=== PATIENT | female | born 1940 | race Caucasian/White ===

== ENCOUNTER 2017-03-15 12:34 | Emergency (ER) | payer MEDICARE ==
[~2017-03-15] VITALS: Ht 170.2 cm; Wt 63.5 kg
[~2017-03-15 12:34] MED LIST: ALBUTEROL S5 MG/1 ML INH; ALBUTEROL2.5 MG/3 M INH; ATROVENT HFA12.9 GM; CROMOLYN S20 MG/2 ML INH; HYDROCODON-ACE1 EA14 PO; NORCO 5-325 TA1 EACH PO; SINGULAIR10 MG PO; THEOCHRON300 MG PO; THEOPHYLLINE A300 MG PO; [UNRECOGNIZED DRUG - REMARK]
[2017-03-15] MEDS ORDERED: THEO-24300 MG PO (14:36)
== END 2017-03-15 14:51 | disposition home or self-care (01) ==
LOC: ED 12:34
DX: J45.901 Unspecified asthma with (acute) exacerbation (principal)
CPT/HCPCS: 94640; 99283

== ENCOUNTER 2019-07-02 10:59 | Emergency (ER) | payer MEDICARE ==
[~2019-07-02] VITALS: Ht 170.2 cm; Wt 63.6 kg
[~2019-07-02 10:59] MED LIST changes: +THEO-24300 MG PO
[2019-07-02] MEDS ORDERED: LEVOTHYROXINE100 MCG PO (11:07)
== END 2019-07-02 13:30 | disposition home or self-care (01) ==
LOC: ED 10:59
DX: R56.9 Unspecified convulsions (principal); J44.9 Chronic obstructive pulmonary disease, unspecified; E03.9 Hypothyroidism, unspecified; F03.90 Unspecified dementia, unspecified severity, without behavioral disturbance, psychotic disturbance, mood disturbance, and anxiety; Z79.899 Other long term (current) drug therapy
CPT/HCPCS: 71045; 80053; 84484; 85025; 96374; 99284-25; J2930